=== PATIENT | male | born 1995 | race Caucasian/White ===

== ENCOUNTER 2017-11-29 20:29 | Emergency (ER) | payer OTHER ==
[~2017-11-29] VITALS: Ht 175.3 cm; Wt 65.8 kg
[2017-11-29 20:31] VITALS: Ht 175.3 cm; Wt 65.8 kg
[2017-11-29 22:10] LABS: BASOPHIL % 0.6 % (0-2); PLATELET COUNT 253 x10^3mcL (130-400); RED CELL DISTRIBUTION WIDTH 13.5 % (11.5-14.5)
[2017-11-29 22:17] LABS: CALCIUM 8.8 mg/dL (8.5-10.1); CARBON DIOXIDE 30.6 mmol/L (21-32); CHLORIDE SERUM 99 mmol/L (98-107); CREATININE SERUM 0.9 mg/dL (0.7-1.3); GFR1 > 60 mL/min; GLUCOSE SERUM 121 mg/dL (74-106); POTASSIUM SERUM 3.6 mmol/L (3.5-5.1); SODIUM SERUM 134 mmol/L (136-145)
[2017-11-29 22:29] LABS: ALBUMIN 3.7 g/dL (3.4-5.0); ALKALINE PHOSPHATASE 56 U/L (46-116); ALT/SGPT 58 U/L (16-63); AST/SGOT 78 U/L (15-37); BILIRUBIN TOTAL 0.49 mg/dL (0.20-1.00); FREE T4 1.03 ng/dL (0.76-1.46); LIPASE 170 IU/L (73-393); TOTAL PROTEIN, SERUM 6.8 g/dL (6.4-8.2)
[2017-11-29 23:33] LABS: microscopic required? YES; urine erythrocyte TRACE (NEGATIVE)
[2017-11-29 23:47] LABS: AMPHETAMINE QUAL UR POSITIVE (NEG <=1000)
[2017-11-30 00:21] VITALS: BP 134/75
== END 2017-11-30 00:21 | disposition home or self-care (01) ==
LOC: ED 20:29
PROVIDERS: Emergency Medicine
DX: F15.10 Other stimulant abuse, uncomplicated (principal); M62.82 Rhabdomyolysis
CPT/HCPCS: 36415; 84439; G0480; J7030